=== PATIENT | male | born 1955 | race African-American/Black ===

== ENCOUNTER 2021-04-18 07:52 | Outpatient (CLI) | payer OTHER, SELFPAY ==
[2021-04-18 09:00] LABS: SARS-CoV-2 RNA PCR Negative (Negative)
== END 2021-04-18 07:53 | disposition home or self-care (01) ==
PROVIDERS: Visit Provider Family Medicine
DX: B34.9 Viral infection, unspecified (principal); Z20.822 Contact with and (suspected) exposure to COVID-19
CPT/HCPCS: C9803; U0003; U0005

== ENCOUNTER 2021-11-17 14:18 | Outpatient (CLI) | payer SELFPAY ==
--- NOTE | ~2021-11-17 | XR_ITS ---
XR chest 2V DATE: 11/17/2021 14:30 INDICATION: Nonspecific reaction to tuberculin skin test TECHNIQUE: 2 views COMPARISON: None FINDINGS: Mild bilateral hyperinflation. No pulmonary infiltrate or consolidation, pleural effusion o r pulmonary vascular congestion or pneumothorax. Normal heart size. Mild aortic unfolding. No hilar or mediastinal enlargement. Mild scoliosis and degenerative change of the thoracic spine. IMPRESSION: Mild bilateral hyperinflation; no active cardiopulmonary disease Reviewed, dictated and finalized at location B.
== END 2021-11-17 14:19 | disposition home or self-care (01) ==
LOC: CHSIMG 14:20
PROVIDERS: PCP Family Medicine; Visit Provider Family Medicine
DX: R76.11 Nonspecific reaction to tuberculin skin test without active tuberculosis (principal)
CPT/HCPCS: 71046